=== PATIENT | female | born 1955 | race Hispanic/Latino ===

== ENCOUNTER 2017-07-13 11:48 | Emergency (ER) | payer OTHER ==
[2017-07-13 12:38] LABS: BASOPHILS % (AUTO) 0.6 % (0.0-5.0); EOSINOPHILS % (AUTO) 0.8 % (0.0-8.0); HEMATOCRIT 41.6 % (36-48); MEAN CORPUSCULAR HEMOGLOBIN 31.8 pg (27.0-33.0); MEAN CORPUSCULAR HGB CONC 34.8 g/dL (32.0-36.0); MEAN CORPUSCULAR VOLUME 91.2 fL (79-99); MONOCYTES % (AUTO) 3.4 % (3.0-13.0); NEUTROPHILS % (AUTO) 63.2 % (40.0-77.0); PLATELET COUNT (AUTO) 245 K/uL (130-400); RED BLOOD CELL COUNT(AUTO) 4.56 MIL/uL (4.00-5.50); RED CELL DISTRIBUTION WIDTH 12.9 % (11.0-15.5); WHITE BLOOD COUNT (AUTO) 7.9 K/uL (4.8-10.8)
[2017-07-13 12:40] LABS: CREATININE 0.9 mg/dL (0.5-1.5); POTASSIUM 3.4 mmol/L (3.5-5.1)
[2017-07-13 12:46] LABS: ALBUMIN 3.6 g/dL (3.5-5.0); BILIRUBIN,TOTAL 0.4 mg/dL (0.2-1.0); TOTAL PROTEIN, SERUM 7.5 g/dL (6.0-8.3)
[2017-07-13 12:50] LABS: INR 0.99 (0.85-1.15); PARTIAL THROMBOPLASTIN TIME 24.6 SEC (26.3-35.5); PROTHROMBIN TIME 10.4 SEC (9.6-11.6)
== END 2017-07-13 17:01 | disposition home or self-care (01) ==
LOC: EDH 11:48
DX: R06.4 Hyperventilation (principal); I49.3 Ventricular premature depolarization; R00.2 Palpitations; R79.1 Abnormal coagulation profile; E07.9 Disorder of thyroid, unspecified
CPT/HCPCS: 36415; 80053; 84484; 85025; 85378; 85610; 85730; 93005

== ENCOUNTER → 2017-08-17 | Outpatient (CLI) | payer OTHER | END | disposition home or self-care (01) | LOC: SLP 20:36 | PROVIDERS: ATTEND Internal Medicine Cardiovascular Disease | DX: G47.30 Sleep apnea, unspecified (principal) | CPT/HCPCS: 95810 ==

== ENCOUNTER 2018-05-07 12:37 | Emergency (ER) | payer OTHER ==
[2018-05-07] MEDS ORDERED: ORPHENADRINE CITRATE 30 MG/ML ML ONE (13:56)
[2018-05-07] MEDS ORDERED: KETOROLAC TROMETHAMINE 30MG/ML ONE (13:56)
[2018-05-07 14:05] LABS: BASOPHILS % (AUTO) 0.9 % (0.0-5.0); EOSINOPHILS % (AUTO) 1.5 % (0.0-8.0); HEMATOCRIT 40.8 % (36-48); LYMPHOCYTES % (AUTO) 37.1 % (21.0-51.0); MEAN CORPUSCULAR HEMOGLOBIN 31.6 pg (27.0-33.0); MEAN CORPUSCULAR HGB CONC 33.6 g/dL (32.0-36.0); MEAN CORPUSCULAR VOLUME 94.1 fL (79-99); MONOCYTES % (AUTO) 7.6 % (3.0-13.0); NEUTROPHILS % (AUTO) 52.9 % (40.0-77.0); NUCLEATED RED BLOOD CELLS 0.1 % (0.0-0.19); PLATELET COUNT (AUTO) 223 K/uL (130-400); RED BLOOD CELL COUNT(AUTO) 4.34 MIL/uL (4.00-5.50); RED CELL DISTRIBUTION WIDTH 12.9 % (11.0-15.5); WHITE BLOOD COUNT (AUTO) 8.3 K/uL (4.8-10.8)
[2018-05-07 14:12] LABS: APPEARANCE,URINE Clear (CLEAR); BILIRUBIN,URINE Negative (NEGATIVE); COLOR,URINE Yellow (YELLOW); GLUCOSE, URINE (UA) Negative (NEGATIVE); KETONES,URINE Negative (NEGATIVE); LEUKOCYTE ESTERASE ,URINE Negative (NEGATIVE); NITRATE,URINE Negative (NEGATIVE); OCCULT BLOOD,URINE Negative (NEGATIVE); PH,URINE 7.5 (5.0-8.0); PROTEIN,URINE Negative (NEGATIVE); UROBILINOGEN,URINE 0.2 mg/dL (0.2-1.0)
[2018-05-07 14:14] LABS: CREATININE 0.9 mg/dL (0.5-1.5); POTASSIUM 3.5 mmol/L (3.5-5.1)
[2018-05-07 14:20] LABS: ALBUMIN 3.4 g/dL (3.5-5.0); BILIRUBIN,DIRECT 0.1 mg/dL (0.0-0.3); BILIRUBIN,TOTAL 0.3 mg/dL (0.2-1.0); TOTAL PROTEIN, SERUM 7.3 g/dL (6.0-8.3)
[2018-05-07 14:21] LABS: INR 1.03 (0.85-1.15); PARTIAL THROMBOPLASTIN TIME 27.1 SEC (26.3-35.5); PROTHROMBIN TIME 10.8 SEC (9.6-11.6)
== END 2018-05-07 14:47 | disposition home or self-care (01) ==
LOC: EDH 12:37
DX: M62.830 Muscle spasm of back (principal); M54.9 Dorsalgia, unspecified; E07.9 Disorder of thyroid, unspecified; Z90.710 Acquired absence of both cervix and uterus
CPT/HCPCS: 36415; 71045; 80048; 80076; 81003; 82550; 84484; 85025; 85610; 85730; 93005; 96374; 96375; 99284; J1885; J2360

== ENCOUNTER 2018-08-19 03:37 | Observation (INO) | payer OTHER ==
[~2018-08-19] VITALS: Ht 170.2 cm; Wt 86.5 kg
[2018-08-19] MEDS ORDERED: DIAZEPAM 5 MG TABLET ONE (04:01)
[2018-08-19 04:04] LABS: BASOPHILS % (AUTO) 0.5 % (0.0-5.0); EOSINOPHILS % (AUTO) 1.1 % (0.0-8.0); HEMATOCRIT 40.5 % (36-48); LYMPHOCYTES % (AUTO) 31.5 % (21.0-51.0); MEAN CORPUSCULAR HEMOGLOBIN 32.2 pg (27.0-33.0); MEAN CORPUSCULAR HGB CONC 34.5 g/dL (32.0-36.0); MEAN CORPUSCULAR VOLUME 93.2 fL (79-99); MONOCYTES % (AUTO) 5.3 % (3.0-13.0); NEUTROPHILS % (AUTO) 61.6 % (40.0-77.0); NUCLEATED RED BLOOD CELLS 0.1 % (0.0-0.19); PLATELET COUNT (AUTO) 211 K/uL (130-400); RED BLOOD CELL COUNT(AUTO) 4.34 MIL/uL (4.00-5.50); RED CELL DISTRIBUTION WIDTH 12.4 % (11.0-15.5)
[2018-08-19 04:11] LABS: CREATININE 0.8 mg/dL (0.5-1.5); POTASSIUM 4.1 mmol/L (3.5-5.1)
[2018-08-19 04:20] LABS: ALBUMIN 3.3 g/dL (3.5-5.0); BILIRUBIN,DIRECT 0.1 mg/dL (0.0-0.3); BILIRUBIN,TOTAL 0.5 mg/dL (0.2-1.0)
[2018-08-19 04:21] LABS: B-TYPE NATRIURETIC PEPTIDE 39 pg/mL (0-100)
[2018-08-19] MEDS ORDERED: KETOROLAC TROMETHAMINE 60 MG/2 ML VIAL ONE (05:43)
[2018-08-19] MEDS ORDERED: PANTOPRAZOLE SODIUM 40 MG TABLET.DR PO ONE (07:39)
[2018-08-19] MEDS ORDERED: FENTANYL CITRATE PF 50 MCG/1 ML 2ML VIAL ONE (07:40)
--- NOTE | 2018-08-19 09:59 | NUR ---
TEJAS Hair met with pt and significant other Eliu [phone]. Pt lives with significant other, she is on SSD. Significant other assists pt as needed with ADLS and home management. Pt has no DME or in home care. Daughter Alexa is ER contact, but pt does not have # at this time and will provide. [place] Addendum: 08/19/18 at 1008 by FANI VALIENTE Amended: Links added.
[2018-08-19 14:45] VITALS: BP 148/90
[2018-08-19] MEDS ORDERED: LEVO88TA7 PO (16:25)
[2018-08-19] MEDS ORDERED: SIMV5TAB58 PO (16:25)
[2018-08-19] MEDS ORDERED: ESTR1TAB17 PO (16:25)
[2018-08-19] MEDS ORDERED: CHOL100040 PO (16:25)
[2018-08-19] MEDS ORDERED: MONT10TA24 PO (16:25)
[2018-08-19] MEDS: KETOROLAC TROMETHAMINE 30MG/ML IV PRN ×2 (16:28→23:22)
[2018-08-19] MEDS ORDERED: HYDRALAZINE HCL 20 MG/ML VIAL IV PRN (16:30)
[2018-08-19] MEDS ORDERED: ONDANSETRON HCL 4 MG/2 ML VIAL IVP PRN (16:30)
[2018-08-19] MEDS ORDERED: FLUO40CA49 PO (16:37)
[2018-08-19 19:15] VITALS: BP 134/85
[2018-08-19] MEDS ORDERED: MONTELUKAST SODIUM 10 MG TAB PO SCH ×2 (21:00)
[2018-08-19] MEDS ORDERED: SIMVASTATIN 10 MG TABLET PO SCH ×2 (21:00)
[2018-08-19] MEDS: ACETAMINOPHEN 325 MG TAB PO PRN (22:15)
[2018-08-19 23:20] VITALS: BP 151/77
[2018-08-20 03:25] VITALS: BP 148/76
[2018-08-20 05:09] LABS: CREATININE 0.7 mg/dL (0.5-1.5); MAGNESIUM 1.9 mg/dL (1.80-2.40); PHOSPHORUS 3.2 mg/dL (2.5-4.9); POTASSIUM 3.7 mmol/L (3.5-5.1); THYROID STIMULATING HORMONE 2.08 uIU/mL (0.36-3.74)
[2018-08-20] MEDS ORDERED: LEVOTHYROXINE 88 MCG TABLET PO SCH ×2 (06:30→07:30)
[2018-08-20 07:00] VITALS: BP_SYST 100; BP_SYST 128; BP_DIAS 71; BP_DIAS 72
[2018-08-20] MEDS ORDERED: PANTOPRAZOLE SODIUM 40 MG TABLET.DR PO SCH (07:30)
[2018-08-20] MEDS ORDERED: CHOLECALCIFEROL 1000 UNIT PO SCH (09:00)
[2018-08-20] MEDS ORDERED: ESTRADIOL 0.5 MG TABLET PO SCH (09:00)
[2018-08-20] MEDS ORDERED: NON-FORMULARY MEDICATION 1 EACH (Estradiol 1 MG) PO SCH (09:00)
[2018-08-20] MEDS ORDERED: VITAMIN D3 PO SCH (09:00)
[2018-08-20] MEDS: KETOROLAC TROMETHAMINE 30MG/ML IV PRN ×2 (09:27→18:36)
[2018-08-20 11:00] VITALS: BP 137/75
[2018-08-20] MEDS: ACETAMINOPHEN 325 MG TAB PO PRN (12:28)
[2018-08-20 16:00] VITALS: BP 131/71
[2018-08-20] MEDS ORDERED: KETOROLAC TROMETHAMINE 30MG/ML ONE (18:31)
--- NOTE | 2018-08-20 19:50 | NUR ---
Discharge paperwork given and explained to patient, patient and both verbalize understanding. IV to right hand removed with tip of catheter intact, pvc monitor removed. Pt wheeled down by May to lobby.
[2018-08-22] MEDS ORDERED: LEVOTHYROXINE 88 MCG TABLET PO SCH (06:30)
== END 2018-08-20 20:12 | disposition home or self-care (01) ==
LOC: EDH 03:37 → EDHIP 07:09 → 4BH 14:15 → UNDODISOB 08-20 15:17
PROVIDERS: ADMIT Internal Medicine Critical Care Medicine; ATTEND Internal Medicine Critical Care Medicine
DX: R55 Syncope and collapse (principal); E06.3 Autoimmune thyroiditis; E78.5 Hyperlipidemia, unspecified; I45.81 Long QT syndrome; J45.909 Unspecified asthma, uncomplicated; T43.205A Adverse effect of unspecified antidepressants, initial encounter; F41.9 Anxiety disorder, unspecified; Z90.710 Acquired absence of both cervix and uterus; Z79.899 Other long term (current) drug therapy
CPT/HCPCS: 36415 ×2; 70450; 72125; 80048 ×2; 80076; 83735 ×2; 83880; 84100; 84443; 84484; 85025; 93005; 93306; 93880; 96374; 96376 ×2; 97116; 97161; 99284; G0378 ×37; G8979; G8980; G8982; G8983; J1885 ×5; J3010

== ENCOUNTER → 2022-12-25 | Outpatient (CLI) | payer OTHER ==
[~2022-12-25] MED LIST: ACET-66 PO; DICY20TA2 PO; ESTR1TAB17 PO; FAMO20TA8 PO; FLUO20CA36 PO; LEVO112C4 PO; ONDA-104 PO; PANT40TA54 PO; SIMV5TAB58 PO
== END | disposition home or self-care (01) ==
LOC: RAH 15:01
PROVIDERS: ATTEND Family Medicine
DX: Z12.31 Encounter for screening mammogram for malignant neoplasm of breast (principal)
CPT/HCPCS: 77067

== ENCOUNTER → 2024-02-15 | Outpatient (CLI) | payer OTHER ==
[~2024-02-15] MED LIST changes: +FLUO-418 PO; -FLUO20CA36 PO
--- NOTE | 2024-02-16 09:42 | HMCIMG ---
MAMMO SCREENING BILATERAL HISTORY: Screening mammogram. COMPARISON: 12/25/2022 TECHNIQUE: Bilateral screening mammogram with CAD was performed with craniocaudal and mediolateral oblique projections. FINDINGS: The breasts are extremely dense which lowers the sensitivity of mammogram. Stable nodular density is seen in the lower inner quadrant of the right breast unchanged. Stable microcalcifications are seen in the retroareolar region of the left breast unchanged. If needed, MRI may be performed for complete evaluation. There is no evidence of a dominant mass, or suspicious microcalcification. There is no evidence of nipple retraction or skin thickening. IMPRESSION: 1. Stable mammogram. Stable nodular density is seen in the lower inner quadrant of the right breast unchanged. Stable microcalcifications are seen in the retroareolar region of the left breast unchanged. If needed, MRI may be performed for complete evaluation. Patient was entered into a reminder system with a target due date for their next mammogram. BI-RADS: CATEGORY 2: BENIGN FINDINGS Recommend monthly self breast exam as well as annual clinical examination. A negative x-ray should not delay biopsy if a dominant or clinically suspicious mass is present, since 8-10% of cancers are not identified by mammography. Dense breasts particularly, may obscure an underlying neoplasm. Some of these may be detected clinically and therefore, clinical examination is an essential part of breast evaluation.
== END | disposition home or self-care (01) ==
LOC: RAH 14:25
PROVIDERS: ATTEND Family Medicine
DX: Z12.31 Encounter for screening mammogram for malignant neoplasm of breast (principal); N63.14 Unspecified lump in the right breast, lower inner quadrant; R92.1 Mammographic calcification found on diagnostic imaging of breast; R92.343 Mammographic extreme density, bilateral breasts
CPT/HCPCS: 77067

== ENCOUNTER → 2024-03-09 | Outpatient (CLI) | payer OTHER ==
--- NOTE | 2024-03-09 16:30 | HMCIMG ---
US BREAST BILATERAL REASON: MASTODYNIA. COMPARISON: Mammogram from 02/15/2024 TECHNIQUE: Bilateral breast ultrasound study was performed. FINDINGS: Both breasts have dense fibroglandular tissue. There are bilateral breast cysts. There are bilateral breast nodules with the largest at 8:00 of right breast measuring 8 x 6 x 7 mm and 2:00 of left breast measuring 11 x 7 x 11 mm. Prominent ducts are noted in the subareolar region of the left breast. Bilateral axillary lymph nodes are seen measuring 8 mm on the right and 2.3 cm on the left. IMPRESSION: Bilateral breast cysts. Bilateral small hypoechoic breast nodules. Six-month follow-up study is recommended.
== END | disposition home or self-care (01) ==
LOC: RAH 15:14
PROVIDERS: ATTEND Family Medicine
DX: N60.01 Solitary cyst of right breast (principal); N60.02 Solitary cyst of left breast; N63.20 Unspecified lump in the left breast, unspecified quadrant; N63.10 Unspecified lump in the right breast, unspecified quadrant

== ENCOUNTER 2024-04-10 09:36 | Emergency (ER) | payer OTHER ==
[~2024-04-10] VITALS: Ht 170.2 cm; Wt 82.6 kg
[2024-04-10 11:23] VITALS: BP 152/88; PULSE 74; RESP 20; TEMP 98.5; O2SAT 96
--- NOTE | 2024-04-10 11:24 | ERN ---
General Chief Complaint: Flank Pain Stated Complaint: BACK PAIN X 2 WEEKS Time Seen by MD: 09:45 Source: patient History of Present Illness Initial Comments PATIENT IS A 68-YEAR-OLD FEMALE COMING IN TO BE EVALUATED FOR LEFT FLANK PAIN. PATIENT STATES THAT THE FLANK PAIN BEGAN TWO WEEKS AGO. SHE LOCALIZES THE PAIN TO THE LEFT FLANK REGION. SHE STATES THAT THE PAIN IS EXACERBATED WITH MOVEMENT. Allergies: Coded Allergies: No Known Drug Allergies (Verified Allergy, Unknown, 08/19/18) Home Meds Active Scripts Pantoprazole Sodium (Pantoprazole Sodium) 40 Mg Tablet.dr, 40 MG PO DAILY for 14 Days, #28 TAB Prov:ERMA NICHOLS 05/23/22 Ondansetron HCl (Ondansetron HCl) 4 Mg Tablet, 4 MG PO TID for 3 Days, #9 TAB Prov:ERMA NICHOLS 05/23/22 Dicyclomine HCl (Bentyl) 20 Mg Tab, 20 MG PO BID for 5 Days, #10 TAB Prov:ERMA NICHOLS 05/23/22 Acetaminophen (Acetaminophen) 500 Mg Tablet, 500 MG PO Q4PRN for 5 Days, #15 TAB Prov:EMRA NICHOLS 05/23/22 Reported Medications Levothyroxine Sodium (Levothyroxine) 112 Mcg Capsule, 112 MCG PO AM, CAP 01/19/22 Fluoxetine HCl (Fluoxetine HCl) 20 Mg Capsule, 20 MG PO AM, CAP 01/19/22 Famotidine (Famotidine) 20 Mg Tablet, 20 MG PO AM, TAB 01/19/22 Simvastatin (Simvastatin) 5 Mg Tablet, 5 MG PO HS, TAB 08/19/18 Estradiol (Estradiol) 1 Mg Tablet, 1 MG PO DAILY, TAB 08/19/18 Past Medical History Past Medical History: GERD, Hypothyroid Past Surgical History: Hysterectomy, Other Surgical History Other: LEFT WRIST, CERVICAL FUSSION ROS Dictation CONSTITUTIONAL: NO CHILLS, NO FEVER, NO WEAKNESS, NO DIAPHORESIS, NO MALAISE. HEAD/FACE: NO SIGNS OF TRAUMA. EENT: NO EYE PAIN, NO BLURRED VISION, NO TEARING, NO DOUBLE VISION, NO EAR PAIN, NO EAR DISCHARGE, NO NOSE PAIN, NO NASAL CONGESTION, NO THROAT PAIN, NO THROAT SWELLING, NO MOUTH PAIN. RESPIRATORY: NO COUGH, NO ORTHOPNEA, NO SOB, NO STRIDOR, NO WHEEZING. CARDIOVASCULAR: NO CHEST PAIN, NO EDEMA, NO PALPITATIONS, NO SYNCOPE. GASTROINTESTINAL/ABDOMINAL: ABDOMINAL PAIN, NO CONSTIPATION, NO DIARRHEA, NO NAUSEA, NO VOMITING. GENITOURINARY: NO ABNORMAL DISCHARGE, NO DYSURIA, NO FREQUENT URINATION, NO HEMATURIA. NO COMPLAINTS OF PAIN IN THE GENITALS. MUSCULOSKELETAL: NO BACK PAIN, NO GOUT, NO JOINT PAIN, NO JOINT SWELLING, NO MUSCLE PAIN, NO MUSCLE STIFFNESS, NO NECK PAIN. INTEGUMENTARY: NO CHANGE IN COLOR, NO CHANGE IN HAIR/NAILS, NO DRYNESS, NO LESION, NO LUMPS, NO RASH. NEUROLOGICAL/PSYCH: NO ANXIETY, NOT DEPRESSED, NO EMOTIONAL PROBLEM, NO HEADACHE, NO NUMBNESS, NO PRE-EXISTING DEFICIT, NO HISTORY OF SEIZURES, NO TREMORS, NO WEAKNESS. HEMATOLOGIC/LYMPHATIC: NOT ANEMIC, NO HISTORY OF BLOOD CLOTS, NO APPARENT BLEEDING, NO BRUISING, GLANDS NOT SWOLLEN. ALL SYSTEMS NEGATIVE, EXCEPT NOTED. Physical Exam Physical Exam Dictation VITAL SIGNS: REVIEWED. GENERAL APPEARANCE: ALERT, ORIENTED X3, NO ACUTE DISTRESS, OBESE. HEAD AND FACE: NON-TRAUMATIC. EYES: PERRL, PINK CONJUNCTIVAS, EYELID NO TRAUMA, ANTERIOR CHAMBER CLEAR. EARS: PINNAS INTACT AND NO SIGNS OF TRAUMA OR ERYTHEMA. EAR CANALS CLEAR AND NO DISCHARGE. TMS NO ERYTHEMA. NOSE: NO DISCHARGE, NO BLEEDING. OROPHARYNX: MOUTH NORMAL, TEETH NO CARIES, TONGUE PINK. PHARYNX CLEAR, NO ERYTHEMA. TONSILS NO EXUDATES, NO ABSCESSES NOTED. MUCOUS MEMBRANE MOIST. NECK: SUPPLE, NON-TENDER, NO THYROMEGALY, NO MASSES, NO JVD, NO BRUITS. BREAST: DEFERRED. CHEST: NO TENDERNESS, NO CREPITUS, NO PARADOXICAL MOVEMENT, NO RETRACTIONS. LUNGS: CLEAR, WELL-VENTILATED, SYMMETRIC, NO RALES, NO WHEEZING, NO RHONCHI, NO STRIDOR, GOOD BREATH SOUNDS BILATERALLY. HEART: REGULAR RATE, REGULAR RHYTHM, NO MURMUR, NO GALLOPS. VASCULAR: NO PERIPHERAL EDEMA. ABDOMEN: SOFT, POSITIVE BOWEL SOUNDS, NONDISTENDED, NO GUARDING, NONTENDER, NO REBOUND, NO MASSES NO HEPATOMEGALY, NO SPLENOMEGALY, NO HUDSON'S SIGN, NO HERNIAS. RECTAL: DEFERRED. GENITAL: DEFERRED. NEUROLOGICAL: NORMAL SPEECH, GROSS MOTOR FUNCTION INTACT, GROSS SENSORY FUNCTION INTACT. MUSCULOSKELETAL: NECK NONTENDER, FULL RANGE OF MOTION, LEFT ELEMENTARY ASSISTANT PRINCIPAL, FULL RANGE OF MOTION. EXTREMITIES: NONTENDER, FULL RANGE OF MOTION. SKIN: COLOR PINK, DRY, NO TURGOR, NO RASH, NO LACERATIONS, NO ABRASIONS, NO CONTUSIONS. LYMPHATICS: DEFERRED. Results Laboratory and Microbiology Lab and Micro Result Laboratory Tests Test 04/10/24 11:38 White Blood Count 9.0 K/uL (4.8-10.8) Red Blood Count 4.80 MIL/uL (4.00-5.50) Hemoglobin 14.9 g/dL (12.0-16.0) Hematocrit 43.4 % (36-48) Mean Corpuscular Volume 90.4 fL (79-99) Mean Corpuscular Hemoglobin 31.0 pg (27.0-33.0) Mean Corpuscular Hemoglobin Concent 34.3 g/dL (32.0-36.0) Red Cell Distribution Width 11.8 % (11.0-15.5) Platelet Count 244 K/uL (130-400) Mean Platelet Volume 10.8 fL (7.5-10.5) H Immature Granulocyte % (Auto) 0.1 % (0-1) Neutrophils (%) (Auto) 64.2 % (40.0-77.0) Lymphocytes (%) (Auto) 28.5 % (21.0-51.0) Monocytes (%) (Auto) 5.2 % (3.0-13.0) Eosinophils (%) (Auto) 1.2 % (0.0-8.0) Basophils (%) (Auto) 0.8 % (0.0-5.0) Neutrophils # (Auto) 5.8 K/uL (1.8-7.7) Lymphocytes # (Auto) 2.6 K/uL (1.0-4.8) Monocytes # (Auto) 0.5 K/uL (0.1-1.0) Eosinophils # (Auto) 0.11 K/uL (0.00-0.70) Basophils # (Auto) 0.07 K/uL (0.00-0.20) Absolute Immature Granulocyte (auto 0.01 K/uL (0-1) Nucleated Red Blood Cells 0.0 % (0.0-0.19) Sodium Level 137 mmol/L (136-145) Potassium Level 4.1 mmol/L (3.5-5.1) Chloride Level 100 mmol/L (101-111) L Carbon Dioxide Level 28 mmol/L (21-32) Blood Urea Nitrogen 10 mg/dL (7-18) Creatinine 0.8 mg/dL (0.5-1.0) Glomerular Filtration Rate Calc 81 mL/min (>90) Random Glucose 96 mg/dL (70-105) Total Calcium 8.9 mg/dL (8.5-10.1) Labs Reviewed?: Yes EKG/XRAY/US/CT/MRI CT Scan Comment [facility] [address] [place] [address] IMAGING REPORT Signed PATIENT: BELLE KOENIG MR#: [id number] : 1955 SEX: F AGE: 68 LOCATION: [facility] ORDER 1223 STATUS: [facility] REPORT#: [id number] SERVICE 1223 REASON: LEFT FLANK PAIN ORDERING PHYSICIAN: KENNEDY PLUMMER MD PROCEDURE: ABD PEL WO - CT ABDOMEN/PELVIS W/O CONTRAST CT ABDOMEN/PELVIS W/O CONTRAST HISTORY: No additional history given. COMPARISON: None TECHNIQUE: Multiple sequential axial images of the abdomen and pelvis were obtained from the dome of the diaphragm through symphysis pubis. Patient was not given contrast through intravenous route. Oral contrast was not given. FINDINGS: No pleural effusion is seen bilaterally. There is no evidence of parenchymal disease or pulmonary nodule of the visualized lower lungs. Degenerative changes of the thoracolumbar spine are present. The heart is not enlarged. Liver measures 17 cm per The liver, spleen, adrenal glands and pancreas are unremarkable. There is no evidence of hydronephrosis bilaterally. No evidence of renal stone is seen. Fecal material is seen in the colon. There are normal size retroperitoneal and mesenteric lymph nodes. No ascites is seen. Atherosclerotic changes are present. Appendix is not well seen limiting evaluation. There is mild diverticulosis. Pelvic sidewalls are symmetric bilaterally. Bladder is poorly distended. Uterus is not seen. IMPRESSION: 1. No acute findings. CT was performed with one or more following dose reduction techniques: automated exposure control, adjustment of the mA and kv according to patient's size, or use of a iterative reconstruction technique. DICTATED BY: LARA STANTON MD DATE: 04/10/24 1329 ELECTRONICALLY SIGNED BY: LARA STANTON MD DATE: 04/10/24 1336 [facility] MDM: DIFFERENTIAL DIAGNOSIS: LUMBAR STRAIN, BACK PAIN, NEPHROLITHIASIS, PATIENT IS A 68-YEAR-OLD FEMALE COMING IN TO BE EVALUATED FOR LEFT FLANK PAIN. CT DID NOT DISCLOSE ACUTE FINDINGS LABS DID NOT DISCLOSE ACUTE FINDINGS. WHILE ABOUT INFORMED PATIENT ABOUT FINDINGS WAS NOT ABLE TO FIND HER, PATIENT ELOPED FROM ER WITHOUT NOTIFYING ME. ED Course Orders Procedure Category Date Status Time Cbc With Differential LAB 04/10/24 Complete 10: Basic Metabolic Panel LAB 04/10/24 Complete 10: Urinalysis LAB 04/10/24 Logged W/Microscopic 10:25 Orphenadrine Citrate PHA 04/10/24 Complete (Norflex) 10:30 Ct Abdomen/Pelvis W/O CT 04/10/24 Resulted Contrast 12:23 Current Medications Medications (Trade) Dose Ordered Sig/Tiffanie Route PRN Reason Start Time Stop Time Status Last Admin Dose Admin Orphenadrine Citrate (Norflex) 60 mg ONCE ONCE IM 04/10/24 10:30 04/10/24 10:31 DC 04/10/24 11:55 Vital Signs Date Time Temp Pulse Resp B/P (MAP) Pulse Ox O2 Delivery O2 Flow Rate FiO2 04/10/24 11:23 98.4 74 20 152/88 96 Room Air* 0 21 04/10/24 10:29 98.4 77 20 165/94 96 Room Air 0 DX & DISP Disposition: AMA Departure Impression: Primary Impression: Back pain Condition: Against Medical Advice Additional Instructions: ELOPED FROM ER WITHOUT NOTIFYING ME. Referrals: FUNMI PEÑA MD (PCP) Time of Disposition: 14:53 KENNEDY PLUMMER MD Apr 10, 2024 11:23
[2024-04-10 11:48] LABS: BASOPHILS # (AUTO) 0.07 K/uL (0.00-0.20); BASOPHILS % (AUTO) 0.8 % (0.0-5.0); EOSINOPHILS # (AUTO) 0.11 K/uL (0.00-0.70); EOSINOPHILS % (AUTO) 1.2 % (0.0-8.0); HEMATOCRIT 43.4 % (36-48); IMMATURE GRANULOCYTE ABSOLUTE 0.01 K/uL (0-1); LYMPHOCYTES # (AUTO) 2.6 K/uL (1.0-4.8); LYMPHOCYTES % (AUTO) 28.5 % (21.0-51.0); MEAN CORPUSCULAR HGB CONC 34.3 g/dL (32.0-36.0); MEAN CORPUSCULAR VOLUME 90.4 fL (79-99); MONOCYTES # (AUTO) 0.5 K/uL (0.1-1.0); MONOCYTES % (AUTO) 5.2 % (3.0-13.0); NEUTROPHILS # (AUTO) 5.8 K/uL (1.8-7.7); NEUTROPHILS % (AUTO) 64.2 % (40.0-77.0); PLATELET COUNT (AUTO) 244 K/uL (130-400); RED CELL DISTRIBUTION WIDTH 11.8 % (11.0-15.5)
[2024-04-10 11:54] LABS: CREATININE 0.8 mg/dL (0.5-1.0); POTASSIUM 4.1 mmol/L (3.5-5.1)
[2024-04-10] MEDS: ORPHENADRINE 60MG/2ML IM ONE (11:55)
--- NOTE | 2024-04-10 13:36 | HMCIMG ---
CT ABDOMEN/PELVIS W/O CONTRAST HISTORY: No additional history given. COMPARISON: None TECHNIQUE: Multiple sequential axial images of the abdomen and pelvis were obtained from the dome of the diaphragm through symphysis pubis. Patient was not given contrast through intravenous route. Oral contrast was not given. FINDINGS: No pleural effusion is seen bilaterally. There is no evidence of parenchymal disease or pulmonary nodule of the visualized lower lungs. Degenerative changes of the thoracolumbar spine are present. The heart is not enlarged. Liver measures 17 cm per The liver, spleen, adrenal glands and pancreas are unremarkable. There is no evidence of hydronephrosis bilaterally. No evidence of renal stone is seen. Fecal material is seen in the colon. There are normal size retroperitoneal and mesenteric lymph nodes. No ascites is seen. Atherosclerotic changes are present. Appendix is not well seen limiting evaluation. There is mild diverticulosis. Pelvic sidewalls are symmetric bilaterally. Bladder is poorly distended. Uterus is not seen. IMPRESSION: 1. No acute findings. CT was performed with one or more following dose reduction techniques: automated exposure control, adjustment of the mA and kv according to patient's size, or use of a iterative reconstruction technique.
== END 2024-04-10 15:06 | disposition left against medical advice (07) ==
LOC: EDH 09:36
DX: M54.9 Dorsalgia, unspecified (principal); E03.9 Hypothyroidism, unspecified; K21.9 Gastro-esophageal reflux disease without esophagitis; Z79.899 Other long term (current) drug therapy; Z90.710 Acquired absence of both cervix and uterus; Z98.890 Other specified postprocedural states
CPT/HCPCS: 36415; 74176; 80048; 85025; 96372; 99285; J2360

== ENCOUNTER 2024-09-13 13:46 | Emergency (ER) | payer OTHER ==
[~2024-09-13] VITALS: Ht 170.2 cm; Wt 82.6 kg
[~2024-09-13 13:46] MED LIST changes: -LEVO112C4 PO; +LEVO112C5 PO
[2024-09-13 14:06] VITALS: BP 148/84; PULSE 72; RESP 16; TEMP 98.3; O2SAT 98
[2024-09-13] MEDS: ORPHENADRINE 60MG/2ML IM ONE (14:19)
[2024-09-13] MEDS: TRIAMCINOLONE ACETONIDE 40 MG/ML 1ML VIAL IM ONE (14:50)
[2024-09-13] MEDS ORDERED: NAPR-1194 PO (16:18)
[2024-09-13] MEDS ORDERED: METH-662 PO (16:18)
--- NOTE | 2024-09-13 16:19 | ERN ---
General Chief Complaint: Headache Stated Complaint: HEADACHES Time Seen by MD: 13:47 Source: patient History of Present Illness Initial Comments PATIENT IS A 68-YEAR-OLD FEMALE COMING IN COMPLAINING OF CHRONIC NECK AND HEAD PAIN. PER PATIENT SHE HAS BEEN EVALUATED BY NEUROSURGEON DR. Prince. Patient states he is pending an MRI and states he got tired of waiting because she kept on having these headaches and decided to come in for further evaluation. Allergies: Coded Allergies: No Known Drug Allergies (Verified Allergy, Unknown, 08/19/18) Home Meds Active Scripts Pantoprazole Sodium (Pantoprazole Sodium) 40 Mg Tablet., 40 MG PO DAILY for 14 Days, #28 TAB Prov:ERMA NICHOLS 05/23/22 Ondansetron HCl (Ondansetron HCl) 4 Mg Tablet, 4 MG PO TID for 3 Days, #9 TAB Prov:ERMA NICHOLS 05/23/22 Dicyclomine HCl (Bentyl) 20 Mg Tab, 20 MG PO BID for 5 Days, #10 TAB Prov:ERMA NICHOLS 05/23/22 Acetaminophen (Acetaminophen) 500 Mg Tablet, 500 MG PO Q4PRN for 5 Days, #15 TAB Prov:ERMA NICHOLS 05/23/22 Reported Medications Levothyroxine Sodium (Levothyroxine) 112 Mcg Capsule, 112 MCG PO AM, CAP 01/19/22 Fluoxetine HCl (Fluoxetine HCl) 20 Mg Capsule, 20 MG PO AM, CAP 01/19/22 Famotidine (Famotidine) 20 Mg Tablet, 20 MG PO AM, TAB 01/19/22 Simvastatin (Simvastatin) 5 Mg Tablet, 5 MG PO HS, TAB 08/19/18 Estradiol (Estradiol) 1 Mg Tablet, 1 MG PO DAILY, TAB 08/19/18 Past Medical History Past Medical History: GERD, Hypothyroid Past Surgical History: Hysterectomy, Other Surgical History Other: LEFT WRIST, CERVICAL FUSSION ROS Dictation CONSTITUTIONAL: No chills, no fever, no weakness, no diaphoresis, no malaise. HEAD/FACE: No signs of trauma. EENT: No eye pain, no blurred vision, no tearing, no double vision, no ear pain, no ear discharge, no nose pain, no nasal congestion, no throat pain, no throat swelling, no mouth pain. RESPIRATORY: No cough, no orthopnea, no SOB, no stridor, no wheezing. CARDIOVASCULAR: No chest pain, no edema, no palpitations, no syncope. GASTROINTESTINAL/ABDOMINAL: No abdominal pain, no constipation, no diarrhea, no nausea, no vomiting. GENITOURINARY: No abnormal discharge, no dysuria, no frequent urination, no he maturia. No complaints of pain in the genitals. MUSCULOSKELETAL: back pain, no gout, no joint pain, no joint swelling, muscle pain, muscle stiffness, neck pain. INTEGUMENTARY: No change in color, no change in hair/nails, no dryness, no lesion, no lumps, no rash. NEUROLOGICAL/PSYCH: No anxiety, not depressed, no emotional problem, no headache, no numbness, no pre-existing deficit, no history of seizures, no tremors, no weakness. HEMATOLOGIC/LYMPHATIC: Not anemic, no history of blood clots, no apparent bleeding, no bruising, glands not swollen. All Systems Negative, Except as Noted. Physical Exam Physical Exam Dictation VITAL SIGNS: Reviewed. GENERAL APPEARANCE: Alert, oriented x3, no acute distress, obese. HEAD AND FACE: Non-traumatic. EYES: PERRL, pink conjunctivas, eyelid no trauma, anterior chamber clear. EARS: Pinnas intact and no signs of trauma or erythema. Ear canals clear and no discharge. TMs no erythema. NOSE: No discharge, no bleeding. OROPHARYNX: Mouth normal, teeth no caries, tongue pink. Pharynx clear, no erythema. Tonsils no exudates, no abscesses noted. Mucous membrane moist. NECK: Supple, non-tender, no thyromegaly, no masses, no JVD, no bruits. BREAST: Deferred. CHEST: No tenderness, no crepitus, no paradoxical movement, no retractions. LUNGS: Clear, well-ventilated, symmetric, no rales, no wheezing, no rhonchi, no stridor, good breath sounds bilaterally. HEART: Regular rate, regular rhythm, no murmur, no gallops. VASCULAR: No peripheral edema. ABDOMEN: Soft, positive bowel sounds, nondistended, no guarding, nontender, no rebound, no masses no hepatomegaly, no splenomegaly, no Evangelista's sign, no hernias. RECTAL: Deferred. GENITAL: Deferred. NEUROLOGICAL: Normal speech, gross motor function intact, gross sensory function intact. MUSCULOSKELETAL: Neck nontender, full range of motion, back nontender, full range of motion. EXTREMITIES: Nontender, full range of motion. Bilateral trapezius muscle tenderness SKIN: Color pink, dry, no turgor, no rash, no lacerations, no abrasions, no contusions. LYMPHATICS: Deferred. Results Laboratory and Microbiology Labs Reviewed?: Yes MDM MDM: Differential diagnosis: Tension headache, muscle strain, muscle spasms, chronic headache Rationale: Tests considered and ordered secondary to shared decision making include: Previous outside records reviewed: Old ER visits. Risk of complication and/or morbidity or mortality of patient management: None Medications-Per medication reconciliation Need for hospitalization: Patient does not meet criteria for hospitalization. Patient is a 68-year-old female coming in complaining of headaches and bilateral trapezius muscle tenderness. Per patient she is pending an MRI by Dr. Eng. Patient states that this has been ongoing for several months. Patient received antispasmodics anti-inflammatory medication she states that her pain improved. I did advise her after speaking to Dr. Eng who is her neurosurgeon that he does not come to our hospital. Spoke to our neurosurgeon Dr. Schmitz he would gladly see her if she is to be admitted. Patient's pain improved significantly and decided to follow up with her original neurosurgeon. I did advise her if she changes her mind or her symptoms resurface or worsened while on medication provided that we could still stick to the plan of admitting her and having neurosurgeon evaluated patient. She agrees we will keep that in mind and will follow up accordingly. Throughout ER visit patient has been neurologically intact. After pain meds patient was monitored in evaluated until pain improved. ED Course Orders Procedure Category Date Status Time Orphenadrine Citrate PHA 09/13/24 Complete (Norflex) 14:00 Triamcinolone Acet PHA 09/13/24 Complete 40mg/Ml 1ml (Kenalog 14:00 Ketorolac PHA 09/13/24 Complete Tromethamine 30mg/Ml 15:30 Current Medications Medications (Trade) Dose Ordered Sig/Tiffanie Route PRN Reason Start Time Stop Time Status Last Admin Dose Admin Ketorolac Tromethamine (toRADol) 30 mg ONCE ONCE IM 09/13/24 15:30 09/13/24 15:34 DC 09/13/24 16:01 Orphenadrine Citrate (Norflex) 60 mg ONCE ONCE IM 09/13/24 14:00 09/13/24 14:01 DC 09/13/24 14:19 Triamcinolone Acetonide (Kenalog 40) 40 mg ONCE ONCE IM 09/13/24 14:00 09/13/24 14:01 DC 09/13/24 14:50 Vital Signs Date Time Temp Pulse Resp B/P (MAP) Pulse Ox O2 Delivery O2 Flow Rate FiO2 09/13/24 14:06 98.2 72 16 148/84 98 Room Air* 0 21 09/13/24 13:47 97.9 79 18 160/76 97 Room Air DX & DISP Disposition: Discharge Departure Impression: Primary Impression: Chronic back pain Additional Impression: Tension headache, chronic Condition: Stable Scripts Naproxen (Naproxen) 500 Mg Tablet 1 TAB PO BID for pain for 7 Days, #14 TAB 0 Refills Prov: KENNEDY PLUMMER MD 09/13/24 Methocarbamol (Robaxin) 750 Mg Tab 1 TAB PO BID for 7 Days, #14 TAB 0 Refills Prov: KENNEDY PLUMMER MD 09/13/24 Additional Instructions: FOLLOW-UP WITH PRIMARY CARE PROVIDER IN 1 TO 2 DAYS. TAKE MEDICATIONS DIRECTED HERE IN THE EMERGENCY ROOM. OKAY TO CONTINUE HOME MEDICATIONS UNLESS OTHERWISE DISCUSSED DURING YOUR VISIT IN THE EMERGENCY ROOM TODAY. RETURN TO YOUR NEAREST EMERGENCY ROOM IF SYMPTOMS WORSEN OR IF THERE IS NO IMPROVEMENT. CALL 911 IF YOU NEED IMMEDIATE ASSISTANCE. TAKE TYLENOL [id number] NEEDED AND IF NO CONTRAINDICATIONS ARE PRESENT. INCREASE ORAL HYDRATION. A WOUND CULTURE OR URINE CULTURE WAS ORDERED HERE IN THE EMERGENCY ROOM DEPARTMENT PLEASE FOLLOW-UP WITH PRIMARY CARE PROVIDER AND ADVISE THEM TO GET REPORTS FROM OUR FACILITY. IF YOU HAD ANY JUAN F WRAP/SPLINTS THAT WERE APPLIED HERE, PLEASE DO NOT REMOVE THEM UNTIL YOU SEE YOUR PRIMARY CARE OR SPECIALTY. Referrals: Referrals: EKATERINA QUIÑONEZ MD (PCP) Time of Disposition: 16:17 KENNEDY PLUMMER MD Sep 13, 2024 16:19
== END 2024-09-13 16:31 | disposition home or self-care (01) ==
LOC: EDH 13:46
DX: G89.29 Other chronic pain (principal); M54.50 Low back pain, unspecified; G44.209 Tension-type headache, unspecified, not intractable; E03.9 Hypothyroidism, unspecified; Z79.899 Other long term (current) drug therapy; Z90.710 Acquired absence of both cervix and uterus
CPT/HCPCS: 99284; 96372 ×3; J1885; J3301; J2360